=== PATIENT | female | born 1970 | race Two or more races ===

== ENCOUNTER → 2017-12-18 | Outpatient (CLI) | payer OTHER ==
[~2017-12-18] MED LIST: ERGO500017 PO; ESCI20TA PO; METH500T7 PO; METO25TA91 PO; OMEP20CA9 PO
== END | disposition home or self-care (01) ==
LOC: CVU 06:42
PROVIDERS: ATTEND Physician Assistant
DX: I37.1 Nonrheumatic pulmonary valve insufficiency (principal); I51.7 Cardiomegaly; I10 Essential (primary) hypertension; R01.1 Cardiac murmur, unspecified
CPT/HCPCS: 93306